=== PATIENT | male | born 1990 | race Caucasian/White ===

== ENCOUNTER 2022-02-07 22:07 | Emergency (ER) | payer SELFPAY ==
[~2022-02-07] VITALS: Ht 180.3 cm; Wt 99.8 kg
[2022-02-07 22:15] VITALS: BP 110/64
--- NOTE | 2022-02-07 22:17 | NUR ---
TO LOBBY A/W BED AMBULATORY
--- NOTE | 2022-02-08 01:00 | NUR ---
SEEN AND EXAMINED BY MICH
[2022-02-08] MEDS ORDERED: FAMOTIDINE 20 MG TAB PO ONE (01:15)
[2022-02-08] MEDS ORDERED: DICYCLOMINE 10 MG CAP PO ONE (01:15)
[2022-02-08] MEDS ORDERED: ALUMINUM HYD/MAG/SIMETHICONE 30 ML UDC PO ONE (01:15)
[2022-02-08 01:26] LABS: APPEARANCE,URINE CLEAR (CLEAR); BILIRUBIN,URINE NEGATIVE (NEGATIVE); BLOOD, URINE NEGATIVE (NEGATIVE); COLOR,URINE YELLOW (YELLOW); LEUKOCYTE ESTERASE ,URINE NEGATIVE (NEGATIVE); NITRITE, URINE NEGATIVE (NEGATIVE); UGLUCOSE NEGATIVE (NEGATIVE)
[2022-02-08 01:36] LABS: BASOPHILS % (AUTO) 0.5 % (0.0-2.0); EOSINOPHILS # (AUTO) 0.5 K/uL (0-0.4); EOSINOPHILS % (AUTO) 5.1 % (0.0-4.0); HEMATOCRIT 47.4 % (36-52); HEMOGLOBIN 16.2 g/dL (12.0-18.0); LYMPHOCYTES % (AUTO) 29.8 % (20.5-51.1); MEAN CORPUSCULAR HEMOGLOBIN 29 pg (27-31); MEAN CORPUSCULAR HGB CONC 34 g/dL (33-37); MEAN CORPUSCULAR VOLUME 84.7 fL (80-94); MONOCYTES # (AUTO) 0.6 K/uL (0.8-1.0); MONOCYTES % (AUTO) 5.9 % (1.7-9.3); NEUTROPHILS % (AUTO) 58.7 % (42.2-75.2); PLATELET COUNT (AUTO) 245 K/uL (140-450); RED CELL DISTRIBUTION WIDTH 13.4 % (11.6-13.7); WHITE BLOOD COUNT (AUTO) 10.2 K/uL (4.8-10.8)
[2022-02-08 01:48] LABS: ALBUMIN 4.1 g/dL (3.4-5.0); ANION GAP 5.4 (8-16); CARBON DIOXIDE 34.9 mmol/L (21-32); CREATININE 0.9 mg/dL (0.6-1.3); POTASSIUM 4.3 mmol/L (3.5-5.1); TOTAL BILIRUBIN 0.5 mg/dL (0.0-1.0)
--- NOTE | 2022-02-08 02:00 | NUR ---
ALL RESULTS BACK AND NOTED BY ERMD AND FOR DC
[2022-02-08] MEDS ORDERED: FAMO-90 PO (02:09)
[2022-02-08] MEDS ORDERED: DICY10CA14 PO (02:09)
[2022-02-08 02:15] VITALS: BP 114/64
--- NOTE | 2022-02-08 02:15 | NUR ---
Patient discharged with v/s stable. Written and verbal after care instructions given and explained. Patient alert, oriented and verbalized understanding of instructions. Carried with steady gait. All questions addressed prior to discharge. ID band removed. Patient advised to follow up with PMD. Rx of BENTYL, PEPCID given. Patient educated on indication of medication including possible reaction and side effects. Opportunity to ask questions provided and answered.
== END 2022-02-08 02:15 | disposition home or self-care (01) ==
LOC: MED 22:07
DX: K21.9 Gastro-esophageal reflux disease without esophagitis (principal)
CPT/HCPCS: 36415; 80053; 81003; 83690; 85025; 99284